=== PATIENT | female | born 1935 | race Caucasian/White ===

== ENCOUNTER 2017-06-09 19:45 | Inpatient (IN) ==
[2017-06-09 20:04] LABS: MANUAL DIFF NEEDED? NO
[2017-06-09 20:09] LABS: BASO% 0.2 % (0.0-0.8); EOS# 0.05 X1000 (0.0-0.7); EOS% 0.6 % (0.0-10.0); HEMATOCRIT 39.5 % (37.0-47.0); HEMOGLOBIN 13.9 g/dL (12.0-16.0); IMM GRAN# 0.07 X1000 (0.0-0.04); IMM GRAN% 0.8 % (0.0-0.5); LYMPH# 2.39 X1000 (1.2-3.4); LYMPH% 26.4 % (20.5-51.1); MCH 32.2 PG (27-31); MCHC 35.2 g/dL (33-37); MCV 91.4 FL (81-99); MPV 8.8 FL (7.4-10.4); PLT 271 X1000 (130-400); RBC 4.32 XMIL (4.2-5.4)
[2017-06-09 20:31] LABS: ALBUMIN 3.9 g/dL (3.5-5.0); CALCIUM 9.3 mg/dL (8.8-10.2); POTASSIUM 4.8 mmol/L (3.5-5.1); TOTAL BILIRUBIN 0.3 mg/dL (0.20-1.00)
[2017-06-09 20:32] LABS: URINE CULTURE NEEDED? NO; URINE MICRO REVIEW NEEDED? NO; URINE SOURCE CATH
--- NOTE | 2017-06-09 20:33 | PROVIDER DOCUMENTATION ---
This chart was entered by Shoshana Huynh Scribe, acting as scribe for Nacho Castro MD. HPI-Musculoskeletal Pain/Inj - GENERAL Stated Complaint: fall, left hip injury Time Seen by Provider: 06/09/17 19:52 Source: patient - HX OF PRESENT ILLNESS-MUSKULOSKELTAL Nature of Presenting Problem: Pt is a 82 year old female who came to the ED with a cc of falling and hurting her left hip just prior to arrival. Quality of Pain: reports: sharp Severity in ED: mild Onset/Duration: just prior to arrival Timing: still present Locality of Occurance: Home Similar Symptoms Previously?: No Recently seen or treated by another doctor?: No - FALL INJURY Location of Pain/Injury: reports: other (right hip) Reason for Fall: reports: slipped (e) Review of Systems - Adult - REVIEW OF SYSTEMS - ADULT Constitutional: denies: chills, fever Eyes: denies: blurred vision, double vision Ears, Nose, Mouth & Throat: reports: no symptoms reported Cardiovascular: denies: orthopnea, syncope Respiratory: reports: no symptoms reported Gastrointestinal: reports: no symptoms reported Genitourinary: reports: no symptoms reported Musculoskeletal: reports: bone pain (right hip). denies: frequent leg cramps, muscle aches Integumentary: reports: no symptoms reported Neurological: reports: no symptoms reported Psychiatric: reports: no symptoms reported Endocrine: reports: no symptoms reported Hematologic/Lymphatic: reports: no symptoms reported Allergic/Immunologic: reports: no symptoms reported All Other Systems: Reviewed and Negative Past History - Adult - PAST MEDICAL HISTORY-ADULT Review of Records: reports: Old Records Reviewed, Nursing Assessment Review Major Childhood Illnesses: reports: denies history Cardiovascular: reports: HTN, hyperlipidemia Respiratory: reports: denies history Gastrointestinal: reports: diverticulosis Genitourinary: reports: denies history - IMMUNIZATION STATUS Childhood Immunizations: See Nurse Assessment Flu Vaccine: See Nurse Assessment Physical Exam-Injury Related - Physical Exam-Injury Related Initial Vital Signs Reviewed: Yes General Appearance: appears well, alert, no apparent distress Eyes: PERRL/EOMI, pink conjunctivae Head, Ears, Nose, Mouth & Throat: normocephalic/atraumatic, moist mucous membranes Neck: non-tender, full range of motion, supple Respiratory: chest non-tender, lungs clear Cardiovascular: normal peripheral pulses, regular rate, rhythm Abdominal Exam: normal bowel sounds, non tender, soft Back Exam: normal inspection, no CVA tenderness Extremity: tenderness (left hip) Integumentary: normal color, warm/dry Neurologic: grossly normal Psych/Mental Status: normal mood/affect, normal thought content, normal thought process, oriented x 3 - Glascow Coma Score Best Eye Response (Yasmani): (4) open spontaneously Best Verbal Response ([place]): (5) oriented Best Motor Response (Yasmani): (6) obeys commands Yasmani Total: 15 Progress - PLAN OF CARE/RESULTS Progress/Plan/Lab Results: Vital Signs - 8 hr 06/09/17 19:58 06/09/17 21:48 Temperature 98.0 F Pulse Rate 76 95 H Respiratory Rate 22 14 Blood Pressure 186/94 186/112 O2 Sat by Pulse Oximetry 90 L 98 Laboratory Results - last 24 hr 06/09/17 06/09/17 06/09/17 19:50 19:50 19:50 WBC 9.05 RBC 4.32 Hgb 13.9 Hct 39.5 MCV 91.4 MCH 32.2 H MCHC 35.2 RDW Std Deviation 13.7 Plt Count 271 MPV 8.8 Immature Gran % (Auto) 0.8 H Neut % (Auto) 61.0 Lymph % (Auto) 26.4 Levy % (Auto) 11.0 H Eos % (Auto) 0.6 Baso % (Auto) 0.2 Immature Gran # (Auto) 0.07 H Neut # (Auto) 5.52 Lymph # (Auto) 2.39 Levy # (Auto) 1.00 H Eos # (Auto) 0.05 Baso # (Auto) 0.02 Sodium 134 L Potassium 4.8 Chloride 97 L Carbon Dioxide 34 Anion Gap 3 BUN 20 Creatinine 0.9 Estimated GFR/1.73 m2 60 BUN/Creatinine Ratio 22 Glucose 241 H Calculated Osmolality 279 Calcium 9.3 Total Bilirubin 0.30 AST 12 ALT 11 Alkaline Phosphatase 134 H Total Protein 7.0 Albumin 3.9 Globulin 3.1 Albumin/Globulin Ratio 1.3 Urine Source CATH Urine Color YELLOW Urine Turbidity CLEAR Urine pH 6.0 Ur Specific Portal 1.018 Urine Protein 50 A Ur Glucose (Stick) 300 A Ur Ketones (Stick) NEGATIVE Urine Blood NEGATIVE Urine Nitrite NEGATIVE Urine Bilirubin NEGATIVE Urobilinogen Dipstick NORMAL Urine Leukocytes NEGATIVE Urine WBC (Auto) <10 Urine RBC (Auto) <10 U Epithel Cells (Auto) <10 Urine Bacteria (Auto) NEGATIVE Orders Category Date Time Status Saline Loc DIRECTED Care 06/09/17 19:59 Active NPO Diet 06/09/17 21:30 Active CHEST-1 VIEW [RAD] Stat Exams 06/09/17 19:58 Taken HIP W/PELVIS BILAT 2 VIEWS [RAD] Stat Exams 06/09/17 19:56 Taken CBC WITH ELECTRONIC DIFF [HEME] Stat Lab 06/09/17 19:50 Completed CMP [COMPREHENSIVE METABOLIC PANEL] [CHEM] Stat Lab 06/09/17 19:50 Completed URINALYSIS W/POSS RFLX CULT-1 [URINALYSIS] Stat Lab 06/09/17 19:50 Completed 0.9% Sodium Chloride Inj [Ns] 1,000 ml Med 06/09/17 21:29 Active IV 125 mls/hr Hydromorphone [Dilaudid] Med 06/09/17 21:08 Discontinued 0.5 mg IV NOW ONE Ondansetron [Zofran] Med 06/09/17 21:09 Discontinued 4 mg IV NOW ONE EKG [EKG] Stat Ther 06/09/17 19:58 Ordered Result Diagrams: 06/09/17 19:50 06/09/17 19:50 - REASSESSMENT Reassessment #1 Time Reassessed: 22:08 Status: unchanged (informed pt and family of admission) - EKG 1 Time of EKG reading by physician:: 20:20 EKG Read and Signed by:: Nacho Castro EKG Interpretation (*Must complete 3 of following elements*): Abnormal Rate: 80 (inferior infarct; possible anterior infarct) Rhythm: NSR - CONSULTS/PCP/HOSPITALIST Notification #1 *Consult/PCP/Hospitalist*: Dr Pickard Time Discussed: 22:10 Consult Disposition: Admit (will see aobut surgery in the AM, NPO) Departure - Departure Date of Disposition Decision: 06/09/17 Time of Disposition Decision: 22:10 DIAGNOSIS: Hip fracture Qualifiers: Encounter type: initial encounter Fracture type: closed Laterality: right Qualified Code(s): S72.001A - Fracture of unspecified part of neck of right femur, initial encounter for closed fracture Disposition: ADMITTED INPATIENT 09 Certified Medical Emergency: Emergent Condition: Stable Referrals and Follow-Ups: Andreea Nugent [Primary Care Provider] - - Critical Care Note This patient required my direct & personal management of CC.: No Attestation - Physician/ PINEDA Attestation The physician spent face to face time with patient:: Yes Advanced Practice Provider documentation review:: Supervising physician onsite and consulted in the evaluation and care of this patient. The physician did have a face to face encounter with the patient. This chart was documented by the indicated scribe, (Shoshana Huynh Scribe) and accurately reflects the services I performed and decisions made by me, Nacho Castro MD, as attested by the provider's signature.
[2017-06-09 20:40] LABS: BILIRUBIN URINE NEGATIVE (NEGATIVE); BLOOD URINE NEGATIVE (NEGATIVE); COLOR YELLOW; GLUCOSE URINE 300 mg/dL (NEGATIVE); LEUKOCYTES URINE NEGATIVE (NEGATIVE); NITRITE URINE NEGATIVE (NEGATIVE); PROTEIN URINE 50 mg/dL (NEGATIVE); SP GRAVITY URINE 1.018; TURBIDITY URINE CLEAR (CLEAR); UR EPITHELIAL CELLS <10 /HPF (<10); URINE BACTERIA NEGATIVE /HPF; URINE RBC <10 /HPF (<10); URINE WBC <10 /HPF (<10); UROBILINOGEN URINE NORMAL (NORMAL)
[2017-06-09] MEDS ORDERED: DILAUDID IV ONE (21:08)
[2017-06-09] MEDS ORDERED: ZOFRAN IV ONE (21:09)
[2017-06-09] MEDS ORDERED: NS 1,000 ML IV ONE ×2 (21:29→23:50)
[2017-06-09] MEDS ORDERED: TYLENOL PO PRN (23:50)
[2017-06-09] MEDS ORDERED: ZOFRAN IV PRN ×2 (23:50)
[2017-06-10] MEDS: LOPRESSOR PO SCH ×5 (00:07→22:57)
--- NOTE | 2017-06-10 00:53 | HISTORY AND PHYSICAL ---
CHIEF COMPLAINT: Left hip pain. HISTORY OF PRESENT ILLNESS: This is an 82-year-old female who presents from home. She lives at [facility]. She apparently fell while trying to put on her pajamas and she sustained an injury to her left hip. She is in a dementia assisted living unit so I think she has got some chronic cognitive issues but she does report significant pain the left hip. She was found to have a left hip fracture and she was admitted for treatment. She has sustained a fracture before of her ankle which required surgical repair. I think she has had stroke before as well, but I think her cognitive function right now is at baseline. PAST MEDICAL HISTORY: 1. Dementia. 2. Diabetes, insulin dependent. 3. Hypertension. 4. Hyperlipidemia. 5. History of CVA. SOCIAL HISTORY: No tobacco or ethanol. She lives in [facility] assisted living unit. FAMILY HISTORY: She reports her mother had diabetes, also stroke. ALLERGIES: No known drug allergies. MEDICATIONS: Dicyclomine 10 q.i.d., Prozac 20 daily, NovoLog 25 units with breakfast and 15 units with supper, reports no other insulin though I am not sure, Cozaar 100 daily, MiraLAX 17 daily and tramadol. REVIEW OF SYSTEMS: Ten systems reviewed, otherwise negative. PHYSICAL EXAMINATION: VITAL SIGNS: Blood pressure 173/98, heart rate 104, respiratory 19, temperature 98 degrees, 97% on 2 L. GENERAL: No major issues. She does look pretty good generally speaking. HEENT: Pupils equal, round, reactive to light. Extraocular movements were intact. Ear nose and throat exam, she had moist mucous membranes. NECK: Supple. CARDIOVASCULAR: Exam was tachycardic, regular S1-S2. PULMONARY: Bilateral breath sounds. Clear to auscultation. GASTROINTESTINAL: Soft, nontender, nondistended. Bowel sounds are positive. EXTREMITIES: No clubbing or cyanosis. LYMPHATICS: No peripheral edema. MUSCULOSKELETAL: 4-5 in all 3 extremities. Lifting her right extremity though she had significant pain on the left. Her left leg was externally rotated and foreshortened. NEUROLOGICAL: Exam was nonfocal. LABORATORY DATA: White count is 9, hemoglobin and hematocrit 13 and 39, platelets 271,000. Basic was normal except for sugar of 241. Urine was clear. EKG reportedly showed normal sinus, inferior infarct, history of. Her hip x-ray showed left femoral neck fracture. Chest x-ray was negative. ASSESSMENT: This is an 82-year-old female with history of hypertension, diabetes, presenting with a left hip fracture. 1. Left hip fracture. The patient appears to be stable. We will continue pain control. Dr. Gama has been consulted. Plan for open reduction internal fixation per their recommendations. I do not think this patient needs further cardiac testing at this point. She does ambulate typically at baseline without difficulty. She can climb a flight of stairs she reports without dyspnea. I do think I am going to institute some Lopressor because she is tachycardic just from the perioperative period, help with blood pressure and heart rate control. 2. Diabetes. We will monitor her blood sugars closely. Continue sliding scale insulin and follow closely. Obtain her home medical treatments and follow. 3. Hypertension. We may need to adjust her medications. She is on Cozaar. Again, we are going to add Lopressor and follow closely. 4. Dementia, appears to be relatively well controlled but that will be pending her other issues. DISPOSITION: She will likely need inpatient rehab. We will monitor closely for those needs as they develop. cc: MD Andreea Schmid
[2017-06-10] MEDS: MORPHINE IV PRN ×4 (03:50→20:50)
[2017-06-10] MEDS ORDERED: PNEUMOVAX 23 IM ONE (04:40)
[2017-06-10 06:09] LABS: HEMATOCRIT 36.4 % (37.0-47.0); HEMOGLOBIN 12.9 g/dL (12.0-16.0); MCH 32.8 PG (27-31); MCHC 35.4 g/dL (33-37); MCV 92.6 FL (81-99); MPV 8.9 FL (7.4-10.4); RBC 3.93 XMIL (4.2-5.4)
[2017-06-10 06:20] LABS: AGAP 12; BUN 16 mg/dL (8-22); CALCIUM 8.4 mg/dL (8.8-10.2); CHLORIDE 99 mmol/L (98-107); COSMO 282; POTASSIUM 4.8 mmol/L (3.5-5.1); SODIUM 137 mmol/L (136-145); TCO2 26 mmol/L (25-35)
[2017-06-10 06:35] LABS: HEMOGLOBIN A1C 7.8 % (4.8-6.0)
[2017-06-10] MEDS: HUMALOG SUBQ SCH ×4 (06:45→22:59)
--- NOTE | 2017-06-10 07:16 | Diag Imaging Result Doc PS360 ---
HIP W/PELVIS BILAT 2 VIEWS - 06/09/2017 INDICATION: fall r hip pain TECHNIQUE: Four views COMPARISON: None FINDINGS: There is an acute displaced subcapital left hip fracture. The right hip is intact. There is bilateral hip osteoarthritis. IMPRESSION: Acute left hip fracture. Right hip is intact. Electronically signed by Ari Lo 06/10/2017 7:13 AM
--- NOTE | 2017-06-10 07:16 | Diag Imaging Result Doc PS360 ---
CHEST-1 VIEW - 06/09/2017 INDICATION: hip injury TECHNIQUE: COMPARISON: 04/13/2016 FINDINGS: The lungs are normally expanded and clear. Heart size and mediastinal contours are normal. No pneumothorax or pleural effusion. IMPRESSION: Negative exam. Electronically signed by Ari Lo 06/10/2017 7:13 AM
--- NOTE | 2017-06-10 07:20 | CONSULTATION ---
DATE OF CONSULTATION: 06/10/2017 CHIEF COMPLAINT: Left hip pain. HISTORY OF PRESENT ILLNESS: Ms. Joyner is an 82-year-old female who fell yesterday and landed on her left hip. She was brought to the emergency department and diagnosed with a left hip fracture. She was admitted per the hospitalist service. Most of her pain at the left hip is worse with any movement but is better when she lies still in bed. She is not really complaining of any other pain in the bilateral upper extremities or the right leg. PAST MEDICAL HISTORY: Hypertension. Dementia. Diabetes. History of stroke. PAST SURGICAL HISTORY: Left knee replacement. SOCIAL HISTORY: She denies any tobacco or alcohol use. She lives in assisted-living facility. FAMILY HISTORY: Positive for diabetes. ALLERGIES: No known drug allergies. MEDICATIONS: Per the medical record. REVIEW OF SYSTEMS: Positive for left hip pain. All other systems are essentially negative. PHYSICAL EXAMINATION: General: Well-developed and well-nourished female. She is in no acute distress this morning. Head and Neck: Normocephalic, atraumatic. Respirations: Nonlabored breathing. Cardiovascular: She has a regular rate. Abdomen: Nondistended. Extremities: On the left lower extremity exam, she has some tenderness to palpation of the left hip and no tenderness to palpation of the knee, foot or ankle. She has good dorsiflexion and plantar flexion of the ankle and toes. 2+ DP pulse and good sensation to light touch to the foot. No tenderness to palpation of the right lower extremity. RADIOGRAPHS: Several views of this left hip were obtained which shows a left hip femoral neck fracture that is displaced. ASSESSMENT: Left displaced femoral neck fracture. PLAN: We will plan on a left hip hemiarthroplasty on Ms. Joyner today. She has already been assessed by Dr. Monroy. At this time, she is not planning any further cardiac testing. We will plan on doing this today. She will remain NPO until surgery. cc: Hiren Gama MD
[2017-06-10] MEDS ORDERED: XYLOCAINE-MPF 2% ONE (13:54)
[2017-06-10] MEDS ORDERED: DIPRIVAN 1% ONE (13:54)
[2017-06-10] MEDS ORDERED: VERSED ONE (14:06)
[2017-06-10] MEDS ORDERED: KETAMINE ONE (14:06)
[2017-06-10] MEDS ORDERED: KEFZOL 2 GM/D5W 2 GM/50 ML IVPB ONE (14:38)
[2017-06-10] MEDS ORDERED: OFIRMEV 1000 MG/ISOTONIC SOLN 1,000 MG/100 ML BOTTLE ONE (15:04)
[2017-06-10] MEDS ORDERED: EPHEDRINE ONE (15:14)
[2017-06-10] MEDS ORDERED: NEO-SYNEPHRINE ONE (15:14)
[2017-06-10] MEDS ORDERED: NS 1,000 ML ONE (16:54)
--- NOTE | 2017-06-10 16:55 | OPERATIVE NOTE ---
PROCEDURE DATE: 06/10/2017 PREOPERATIVE DIAGNOSIS: Left displaced femoral neck fracture. POSTOP DIAGNOSIS: Left displaced femoral neck fracture. PROCEDURE: Left hip hemiarthroplasty. SURGEON: Dr. Hiren Gama. FAITH DOCTOR: Char Barahona, nurse practitioner. Erick Vega RN. ANESTHESIA: Spinal. ESTIMATED BLOOD LOSS: About 30 mL. IMPLANTS: DePuy Corail stem size 10 with size 47 head. DISPOSITION: PACU hemodynamically stable. INDICATION FOR PROCEDURE: Ms. Joyner 82-year-old female who presented to the emergency department yesterday with a hip fracture. She was admitted per the hospitalist service, made NPO after midnight, worked up and cleared for surgery. I went over with her and her daughter who is medical power of senior attorney about the risks, benefits, potential complications of surgery. Risks include but are not limited to infection, wound healing problems, damage to nerves, arteries, veins, numbness, hardware related issues, fracture-dislocation, DVT and anesthesia related risks. After discussing these with the patient and her daughter who is medical power of senior attorney Ro Peralta, they expressed understanding and wished to proceed and Ms. Peralta signed on behalf her mother. DESCRIPTION OF PROCEDURE: Left hip was marked as correct surgical site. She was then wheeled to the operating room, placed supine on the operating table. All bony prominences well padded. She was induced under spinal anesthesia. She was then flipped to the right lateral decubitus position. Left lower extremity was then prepped with chlorhexidine gluconate scrub and then ChloraPrep and draped in normal sterile fashion. Surgical pause was performed. We identified the correct patient, correct side, and the correct procedure. Preop antibiotics were given which is 2 g IV Ancef. Lateral incision was made over the left hip and dissection was carried down to the deep fascia. We then divided the deep fascia and found our short external rotators. I released the piriformis off and tagged it for repair later and was able to identify our fracture of the neck and I then T'd the capsule and I freshened up our neck cut and then got the head out with a corkscrew. We sized it to about 47, I trialed a 47 and that actually fit really well. I then irrigated everything out to make sure that all bony fragments were out and they were. We then used a cookie cutter to get some of that lateral bone out of the way so we could get our stem in the correct position. Then used a canal finer and then we sequentially broached up to a size 10 and the size 10 actually fit really well and then used the calcar planer, planed that down, trialed it and everything actually fit really well, trial components, put in the size 10 Corail stem. It did sync a little bit more then what our trial did, took a really good look at the neck just to make sure there were no fracture lines anywhere through there and there was not but the implant was stable. It did sync just a little bit but it was stable so I decided to leave it in and we trialed, it maybe sunk a few millimeters and then put our head on reduced the hip and it was very stable in both flexion, internal rotation, extension and flexion of the knee and full range of motion. At this time I repaired the capsule 0 Vicryl, repaired the piriformis back to the trochanter with 0 Vicryl, repaired the deep fascia with 0 Vicryl, 2-0 Vicryl for the subcutaneous and eric on the skin. Adaptic, 4 x 4s, an island dressing was placed. The patient was then wheeled back to her own bed and taken to the PACU in stable condition. Postop patient will be weight bear as tolerated left lower extremity and I will see her in the morning. cc: Hiren Gama MD
[2017-06-10] MEDS: MIRALAX PO SCH (17:03)
[2017-06-10] MEDS: COZAAR PO SCH (17:03)
[2017-06-10] MEDS: PROZAC PO SCH (17:03)
--- NOTE | 2017-06-10 17:03 | PROGRESS NOTE ---
DATE: 06/10/2017 SUBJECTIVE: Ms. Joyner this morning referred to be doing fine. Just had some pain to the left hip, but otherwise unremarkable. OBJECTIVE: Vital Signs: Blood pressure 172/70, pulse of 62, respirations 18, temperature 98.3 degrees. General: Ms. Joyner is an 82-year-old female. She is in bed, very pleasant. Was not in any distress, except for some pain in the left hip. HEENT: Mucosa was pink and moist. Anicteric. Acyanotic. Neck: Supple. Chest: Good air entry bilaterally. No crepitations. No rhonchi. Cardiovascular: Regular rate and rhythm. Abdomen: Soft, nontender. Extremities: No pedal edema. The left lower extremity was slightly externally rotated. Central Nervous System: Patient was awake, alert, a little disoriented to place. X-RAYS: A pelvic x-ray did show acute left hip fracture, with some dislocation. I think there is some constipation as well. ASSESSMENT: 1. Acute left femoral head displaced fracture. 2. Diabetes mellitus. 3. Hypertension. 4. Dyslipidemia. 5. Constipation. 6. Mild dehydration. PLAN: We are going to continue with gentle IV fluids, pain management. Patient has already been evaluated by orthopedics, and there is a plan to do surgery today. The patient does not have any acute cardiac symptoms, so I think she should be okay for the orthopedic surgery. cc: Josue Haider MD
[2017-06-10] MEDS: BENTYL PO SCH ×2 (17:04→22:57)
[2017-06-10] MEDS ORDERED: MILK OF MAGNESIA PO PRN (17:07)
[2017-06-10] MEDS ORDERED: HALDOL IV PRN (17:07)
[2017-06-10] MEDS ORDERED: ZOFRAN IV PRN (17:07)
[2017-06-10] MEDS: NS 1,000 ML IV SCH (17:37)
[2017-06-10] MEDS: TYLENOL PO SCH (17:39)
--- NOTE | 2017-06-10 17:53 | Diag Imaging Result Doc PS360 ---
EXAM: PELVIS HISTORY: postop hip sabi TECHNIQUE: AP portable pelvis at 1715 COMMENT: There is a bipolar hip prosthesis on the left. This is been placed since the previous study of 06/09/2017. There is generalized osteopenia. There is calcium pyrophosphate deposition in the symphysis pubis. IMPRESSION: Postsurgical changes in the left hip as described. Electronically signed by Feliberto Willis 06/10/2017 5:51 PM
[2017-06-10] MEDS: PERIDEX MT SCH (22:57)
[2017-06-10] MEDS: COLACE PO SCH (22:57)
[2017-06-10] MEDS: KEFZOL 1 GM/D5W 1 GM/50 ML IVPB IV SCH (22:59)
[2017-06-10] MEDS: OXY IR PO PRN (23:03)
[2017-06-11] MEDS: MORPHINE IV PRN ×3 (00:03→06:23)
[2017-06-11] MEDS: TYLENOL PO SCH ×3 (00:15→17:21)
[2017-06-11] MEDS: LOPRESSOR PO SCH ×4 (02:14→22:19)
[2017-06-11] MEDS: HUMALOG SUBQ SCH ×4 (06:18→22:20)
[2017-06-11] MEDS: KEFZOL 1 GM/D5W 1 GM/50 ML IVPB IV SCH ×3 (06:18→17:52)
[2017-06-11] MEDS: LOVENOX SUBQ SCH (06:18)
[2017-06-11] MEDS: NS 1,000 ML IV SCH ×2 (06:21→10:00)
[2017-06-11 06:27] LABS: HEMATOCRIT 33.8 % (37.0-47.0); HEMOGLOBIN 11.7 g/dL (12.0-16.0)
[2017-06-11 06:49] LABS: AGAP 9; BUN 14 mg/dL (8-22); CALCIUM 8.2 mg/dL (8.8-10.2); CHLORIDE 99 mmol/L (98-107); COSMO 271; POTASSIUM 4.5 mmol/L (3.5-5.1); SODIUM 132 mmol/L (136-145); TCO2 24 mmol/L (25-35)
[2017-06-11] MEDS: FERROUS SULFATE PO SCH (07:54)
[2017-06-11] MEDS: COZAAR PO SCH (08:00)
[2017-06-11] MEDS: PROZAC PO SCH (08:01)
[2017-06-11] MEDS: BENTYL PO SCH ×4 (08:01→22:19)
[2017-06-11] MEDS: PERIDEX MT SCH ×2 (08:01→22:19)
[2017-06-11] MEDS: MIRALAX PO SCH (08:01)
--- NOTE | 2017-06-11 09:38 | PROGRESS NOTE ---
DATE: 06/11/2017 SUBJECTIVE: Ms. Joyner is postop day 1 after a left hip sabi. She was reading the paper this morning, seemed very comfortable, but did state that she was in a lot of pain. OBJECTIVE: Left lower extremity exam: Dressing is clean, dry, and intact. She can dorsiflex and plantar flex the ankle very well. Good sensation to light touch to the foot. RADIOGRAPHS: Postop radiograph was reviewed which shows the implant looks to be in really good position. ASSESSMENT: Left hip hemiarthroplasty. PLAN: Ms. Joyner can be weightbearing as tolerated, left lower extremity. Physical Therapy to start working with her today. cc: Hiren Gama MD
[2017-06-11] MEDS: OXY IR PO PRN ×4 (09:55→21:04)
--- NOTE | 2017-06-11 10:57 | PROGRESS NOTE ---
DATE: 06/11/2017 SUBJECTIVE: Today Ms. Joyner refers to be doing a lot better. She says she was hurting a little bit early on this morning, was given medication and now the pain has subsided. OBJECTIVE: Vital signs: Blood pressure is 190/81, pulse of 74, respiration is 20, temperature is 99.7 degrees. General: Ms. Joyner is an 82-year-old female. She is in bed, not seemingly distressed. HEENT: Mucosa is pink and moist. Anicteric. Acyanotic. Neck: Supple. Chest: Good air entry bilateral. No crepitations. No rhonchi. Cardiovascular: Regular rate and rhythm. There are no murmurs, no rubs, no gallops. Abdomen: Soft, nontender. Extremities: No pedal edema. The left hip has sterile dressing over it and there is immobilizer in between both legs. Distal pulses were present. WORDPRESS DEVELOPER: Patient is awake, alert. She is slightly hard of hearing, but she knows where she is. CURRENT MEDICATIONS: 1. Tylenol. 2. Sulfasalazine for surgical prophylaxis. 3. Bentyl p.r.n. 4. Lovenox 40 subcutaneous. 5. Iron sulfate. 6. Fluoxetine 20 mg daily. 7. Losartan 100 mg daily. 8. Morphine p.r.n. Surgical report yesterday shows left hip hemiarthroplasty was done by Dr. Hiren Gama. ASSESSMENT: 1. Acute left femoral head displaced fracture, status post left hip hemiarthroplasty. Today is day one postoperative. The patient has already been evaluated by Dr. Gama, and the plan is to have physical therapy start working with her. 2. Diabetes mellitus is controlled. 3. Hypertension. 4. Constipation. We will continue to address this more symptomatically. 5. Mild hyponatremia. 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 She had a sodium of 131. She is also on fluoxetine which is an SSRI which can potentially cause this. For now, fluids have been discontinued. We will restrict her fluid intake. Recheck on her electrolytes for tomorrow. DISPOSITION: Patient is from [facility], however I think she will need to go to rehab first for about 21 days, get her strong, walking and independent again before she goes back to [facility]. We will consult social services analyst for rehab planning. cc: Josue Haider MD
[2017-06-11] MEDS: COLACE PO SCH (22:19)
[2017-06-12] MEDS: OXY IR PO PRN ×4 (02:24→20:43)
[2017-06-12] MEDS: LOPRESSOR PO SCH ×4 (03:06→20:48)
[2017-06-12] MEDS: TYLENOL PO SCH ×3 (03:06→18:12)
[2017-06-12] MEDS: NS 1,000 ML IV SCH (03:25)
[2017-06-12 05:55] LABS: HEMATOCRIT 30.5 % (37.0-47.0); HEMOGLOBIN 10.8 g/dL (12.0-16.0)
[2017-06-12 06:14] LABS: AGAP 16; BUN 15 mg/dL (8-22); CALCIUM 8.4 mg/dL (8.8-10.2); CHLORIDE 94 mmol/L (98-107); COSMO 274; POTASSIUM 4.2 mmol/L (3.5-5.1); SODIUM 133 mmol/L (136-145); TCO2 23 mmol/L (25-35)
[2017-06-12] MEDS: HUMALOG SUBQ SCH ×4 (06:18→22:49)
[2017-06-12] MEDS: LOVENOX SUBQ SCH (06:18)
--- NOTE | 2017-06-12 09:04 | PROGRESS NOTE ---
DATE: 06/12/2017 SUBJECTIVE: Ms. Joyner is lying in bed this morning. The pain is very well controlled when she is sitting still. The nursing staff does tell me, though, that when they try to move her, she does have a lot of pain but they have been getting her up to the bedside toilet. OBJECTIVE: On left lower extremity exam, dressing is clean, dry, and intact. She is able to dorsiflex and plantarflex the foot and ankle very well. ASSESSMENT: Status post left hip hemiarthroplasty for fracture. PLAN: I think Mr. Joyner is doing well. I did encourage her to get up more and more. I want her out of bed for all meals in the bedside chair. She can weight bear as tolerated to the left lower extremity. She will start working with physical therapy on strengthening. cc: Hiren Gama MD
[2017-06-12] MEDS: MIRALAX PO SCH (10:39)
[2017-06-12] MEDS: BENTYL PO SCH ×4 (10:40→20:40)
[2017-06-12] MEDS: FERROUS SULFATE PO SCH (10:40)
[2017-06-12] MEDS: PROZAC PO SCH (10:40)
[2017-06-12] MEDS: PERIDEX MT SCH ×2 (10:40→20:49)
[2017-06-12] MEDS: COZAAR PO SCH (10:41)
--- NOTE | 2017-06-12 15:32 | PROGRESS NOTE ---
DATE: 06/12/2017 SUBJECTIVE: Today Ms. Joyner refers to be doing relatively fine. Denies any complaint. Patient has been able to be up and ambulatory with physical therapy. OBJECTIVELY: Vitals: Stable. Blood pressure is 148/62, pulse of 67, respirations 20, temperature 98.6 degrees. General: Ms. Joyner is an 82-year-old female. She is in bed, no distress. HEENT: Mucosa is pink and moist. Anicteric and acyanotic. Neck: Supple. Chest: Clear. Cardiovascular: Regular rate and rhythm. Abdomen: Soft, nontender. Extremities: No pedal edema. The left hip has sterile dressing over it. The immobilizing between the legs has been removed today. LABORATORY DATA: Hemoglobin is 10.8. Chemistry is reviewed. Sodium is 133, potassium is 4.3, the rest of chemistry is unremarkable. ASSESSMENT: 1. Acute left femoral head displaced fracture status post left hip hemiarthroplasty. Today is day 2 postop. Patient seems to be doing remarkably fine. 2. Diabetes mellitus, controlled. 3. Hypertension. 4. Constipation, improved. 5. Mild hyponatremia, improving with fluid restriction. 6. Alzheimer's dementia, noted. PLAN: Ms. Joyner is from an assisted living facility. She is going to be going to a rehab to help with physical training and rehabilitation before we transition her back to her assisted living facility. cc: Josue Haider MD
[2017-06-12] MEDS: COLACE PO SCH (20:41)
[2017-06-13] MEDS: OXY IR PO PRN ×6 (01:00→21:06)
[2017-06-13] MEDS: TYLENOL PO SCH ×3 (02:32→17:12)
[2017-06-13] MEDS: LOPRESSOR PO SCH ×4 (02:32→21:06)
[2017-06-13 06:09] LABS: HEMOGLOBIN 10.5 g/dL (12.0-16.0)
[2017-06-13] MEDS: LOVENOX SUBQ SCH (06:20)
[2017-06-13] MEDS: HUMALOG SUBQ SCH ×4 (06:21→21:35)
[2017-06-13 06:32] LABS: AGAP 15; BUN 21 mg/dL (8-22); CALCIUM 8.4 mg/dL (8.8-10.2); CHLORIDE 96 mmol/L (98-107); COSMO 275; SODIUM 133 mmol/L (136-145); TCO2 22 mmol/L (25-35)
[2017-06-13] MEDS: COZAAR PO SCH (09:09)
[2017-06-13] MEDS: PERIDEX MT SCH (09:09)
[2017-06-13] MEDS: PROZAC PO SCH (09:09)
[2017-06-13] MEDS: BENTYL PO SCH ×4 (09:11→21:06)
[2017-06-13] MEDS: FERROUS SULFATE PO SCH (09:11)
[2017-06-13] MEDS: MIRALAX PO SCH (09:20)
--- NOTE | 2017-06-13 16:52 | PROGRESS NOTE ---
DATE: 06/13/2017 SUBJECTIVE: Today Ms. Joyner referred to be doing a lot better. Denies any complaints. Just awaiting placement. OBJECTIVE: Vital signs: Blood pressure is 141/75, pulse 71, respirations 12, temperature 97.9 degrees. General: Ms. Joyner is an 82-year-old very pleasant female. She was in bed. Not seemingly distressed. HEENT: Mucosa is pink and moist. Anicteric. Acyanotic. Neck: Supple. Chest: Good air entry bilaterally. No crepitations. No rhonchi. Cardiovascular: Regular rate and rhythm. There are no murmurs, no rubs, no gallops. Abdomen: Soft, nontender. Extremities: No pedal edema. Distal pulses are present. The left hip has a sterile dressing over the wound. LABORATORY DATA: Hemoglobin is 8.5. Chemistry has been reviewed. Unremarkable, except for glucose of 204 and sodium of 133. CURRENT MEDICATIONS: Have been reviewed. ASSESSMENT: 1. Acute left femoral head displaced fracture, status post left hip hemiarthroplasty. Today is day 3 postop. Patient seems to be doing remarkably fine. She has been participating in physical therapy. We are just awaiting rehab bed availability to transfer the patient. 2. Diabetes mellitus. This is uncontrolled. Patient was actually on 25 units of insulin at home, which was NovoLog, but we will calculate her needs for long-term glargine to get better control. 3. Constipation, improved. 4. Mild hyponatremia, stable. I think once we correct the glucose, it is probably going to be a little bit better. 5. Alzheimer's dementia, noted. In general, I think Ms. Joyner is doing remarkably fine. We will make a few adjustments in her insulin needs and await rehab bed for her transfer. cc: Josue Haider MD
[2017-06-13] MEDS ORDERED: LANTUS SUBQ SCH (21:00)
[2017-06-13] MEDS: COLACE PO SCH (21:06)
[2017-06-13] MEDS ORDERED: INSULIN PEN NEEDLES ONE (22:54)
[2017-06-14] MEDS: TYLENOL PO SCH ×2 (02:00→08:52)
[2017-06-14] MEDS: LOPRESSOR PO SCH ×3 (02:24→13:30)
[2017-06-14] MEDS: OXY IR PO PRN ×3 (03:36→13:31)
[2017-06-14] MEDS: PERIDEX MT SCH ×2 (05:46→08:52)
[2017-06-14] MEDS: HUMALOG SUBQ SCH ×3 (06:59→16:02)
[2017-06-14] MEDS: LOVENOX SUBQ SCH (06:59)
[2017-06-14] MEDS: MIRALAX PO SCH (08:52)
[2017-06-14] MEDS: PROZAC PO SCH (08:53)
[2017-06-14] MEDS: BENTYL PO SCH ×2 (08:53→13:30)
[2017-06-14] MEDS: COZAAR PO SCH (08:53)
[2017-06-14] MEDS: FERROUS SULFATE PO SCH (08:53)
--- NOTE | 2017-06-14 12:09 | DISCHARGE SUMMARY ---
ADMISSION DATE: 06/09/2017 DISCHARGE DATE: 06/14/2017 CONSULTATIONS: Dr. Gama with orthopedic surgery. PERTINENT PROCEDURES: Left hip hemiarthroplasty performed by Dr. Gama. DISCHARGE DIAGNOSES: 1. Acute left femoral hip displaced fracture status post left hip hemiarthroplasty. The patient is being discharged to [facility] where she will be touchdown weightbearing as tolerated on the left lower extremity. Follow up with Dr. Gama in 1 week. 2. Diabetes mellitus, uncontrolled. She has had Lantus added to her regimen. 3. Constipation, improved. 4. Mild hyponatremia, stable. 5. Alzheimer's dementia, noted. 6. Hypertension, stable. 7. Cerebrovascular accident history, aware. HOSPITAL COURSE: Ms. Joyner is an 82-year-old female who carries a past medical history of Alzheimer's dementia, diabetes insulin dependent, hypertension, hyperlipidemia, history of CVA, presented from the [facility]. She fell while trying to put on her pajamas and sustained an injury to her left hip. She is in a dementia assisted living unit. In the ED she was found have a left hip fracture. She underwent a left hemiarthroplasty by Dr. Gama. She has worked with physical therapy and she is to be touchdown weightbearing as tolerated to the left lower extremity. She has had adjustments to her insulin regimen since her diabetes was uncontrolled. 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 She is appropriate for discharge today. VITAL SIGNS: Temperature is 98.5 degrees, heart rate 62, respirations 14, blood pressure 147/63, O2 is 94% on room air. DISCHARGE DIET: Diabetic. DISCHARGE MEDICATIONS: As per Dr. Haider. Please see MAR. FOLLOWUP: Ms. Joyner is being discharged to [facility] for rehab. She will be touchdown weightbearing on left lower extremity as tolerated. She will need to be up out of bed for all meals and p.r.n. She will need to follow up with Dr. Gama in 1 week. Please continue with daily cleaning and dressing changes of her left incision. Patient can return to the ED for any worsening of symptoms. DISCHARGE TIME: 30 minutes. Dictated by EVON Mchugh for Josue Haider MD cc: JosueMD Andreea Moctezuma
[2017-06-14 13:43] VITALS: BP 144/67
[2017-06-15] MEDS ORDERED: XARELTO PO SCH (06:00)
== END 2017-06-14 17:50 ==
LOC: ED 19:45 → 4N 23:08 → SUATTDRO 23:08 → 4N 06-10 14:05
PROVIDERS: ATTEND Internal Medicine